=== PATIENT | male | born 1940 | race Two or more races ===

== ENCOUNTER 2018-03-03 10:40 | Inpatient (IN) | payer MEDICARE, BC ==
[2018-03-03] MEDS ORDERED: NACL 0.9% 3 ML SYG IV (12:00)
[2018-03-03] MEDS ORDERED: VANCOMYCIN IV PER PHARMACY XX (12:00)
[2018-03-03] MEDS ORDERED: ONDANSETRON 4 MG INJ IV (12:00)
[2018-03-03] MEDS ORDERED: DIPHENHYDRAMINE 50 MG CAP PO (12:00)
[2018-03-03 12:31] LABS: ADD MAN DIFF? NO
[2018-03-03 12:32] LABS: WHITE BLOOD COUNT 6.3 10^3/ul (4.8-10.8)
[2018-03-03 12:32] LABS: BASOPHILS % 0.2 % (0.0-2.0); EOSINOPHILS # 0.1 10^3/ul (0.0-0.5); EOSINOPHILS % 1.6 % (0.0-7.0); HEMATOCRIT 41.9 % (42.0-52.0); HEMOGLOBIN 13.9 g/dl (14.0-18.0); LYMPHOCYTES % 15.6 % (15.0-51.0); MEAN CORPUSCULAR HGB CONC 33.2 g/dl (32.0-37.0); MEAN CORPUSCULAR VOLUME 96.5 fl (82.0-101.0); MEAN PLATELET VOLUME 9.1 fl (7.4-10.4); MONOCYTE # 0.5 10^3/ul (0.3-0.9); MONOCYTES % 7.2 % (0.0-11.0); NEUTROPHIL # 4.7 10^3/ul (1.6-7.5); NEUTROPHILS % 74.9 % (39.0-77.0); PLATELET COUNT 224 10^3/UL (140-415); RED BLOOD COUNT 4.34 10^6/ul (4.70-6.10); RED CELL DISTRIBUTION WIDTH 13.5 % (11.5-14.5)
[2018-03-03 13:25] LABS: ALANINE AMINOTRANSFERASE 12 IU/L (13-69); ALBUMIN 3.4 g/dl (3.3-4.9); ALBUMIN/GLOBULIN RATIO 1.03; ALKALINE PHOSPHATASE 107 IU/L (42-121); ANION GAP 9 (5-13); ASPARTATE AMINO TRANSFERASE 21 IU/L (15-46); BILIRUBIN,INDIRECT 0.3 mg/dl (0-1.1); BILIRUBIN,TOTAL 0.3 mg/dl (0.2-1.3); BLOOD UREA NITROGEN 21 mg/dl (7-20); CARBON DIOXIDE 30 mmol/L (21-31); CHLORIDE 103 mmol/L (97-110); CREATININE 0.89 mg/dl (0.61-1.24); GLUCOSE 104 mg/dl (70-220); MAGNESIUM 2.2 mg/dl (1.7-2.5); POTASSIUM 4.3 mmol/L (3.5-5.1); SODIUM 142 mmol/L (135-144); TOTAL PROTEIN 6.7 g/dl (6.1-8.1)
[2018-03-03] MEDS: VANCOMYCIN 1.5 GM in SOD CHLORIDE 0.9% 250 ML IVPB ×2 (13:30→18:17)
[2018-03-03] MEDS ORDERED: PENDING SANTYL ORDER FOR WOUND CARE XX (16:30)
[2018-03-03] MEDS: MEROPENEM 1 GM/50ML(PMX) 50 ML IVPB ×2 (17:45→21:59)
[2018-03-03] MEDS: DEXTROSE 5%-0.45% NACL 1,000 ML IV (18:17)
[2018-03-03 18:22] LABS: ADD UMIC NO; UR ASCORBIC ACID NEGATIVE (NEGATIVE); UR BILIRUBIN (Dip) NEGATIVE (NEGATIVE); UR BLOOD (Dip) NEGATIVE (NEGATIVE); UR CLARITY CLEAR (CLEAR); UR COLOR YELLOW (YELLOW); UR GLUCOSE (Dip) NEGATIVE (NEGATIVE); UR KETONES (Dip) NEGATIVE (NEGATIVE); UR LEUKOCYTE ESTERASE (Dip) NEGATIVE Leu/ul (NEGATIVE); UR NITRITE (Dip) NEGATIVE (NEGATIVE); UR SPECIFIC GRAVITY (Dip) 1.016 (1.003-1.030); UR TOTAL PROTEIN (Dip) NEGATIVE (NEGATIVE); UR UROBILINOGEN (Dip) 1+ mg/dL (NEGATIVE)
[2018-03-03 18:34] LABS: CREATININE,URINE RANDOM 84.67 mg/dl (20-370)
[2018-03-03 20:46] LABS: C-REACTIVE PROTEIN 2.2 mg/dl (0.0-0.9)
[2018-03-03] MEDS: CARBIDOPA/LEVODOPA 25-100 (CR) TAB PO (21:00)
[2018-03-03] MEDS: ATORVASTATIN 10 MG TAB PO (21:00)
[2018-03-03] MEDS ORDERED: CARBIDOPA/LEVODOPA 50-200 (CR) TAB PO (21:00)
[2018-03-03 21:20] LABS: ERYTHROCYTE SEDIMENTATION RATE 37 mm/Hr (0-20)
[2018-03-04] MEDS ORDERED: VANCOMYCIN 750 MG (PMX) 250 ML IVPB (03:00)
[2018-03-04 05:29] LABS: HEMOGLOBIN A1C 5.9 % (0-5.9)
[2018-03-04] MEDS: VANCOMYCIN 750 MG (PMX) 250 ML IVPB ×2 (05:37→17:38)
[2018-03-04] MEDS: CARBIDOPA/LEVODOPA 25-100 (CR) TAB PO ×2 (08:56→21:25)
[2018-03-04] MEDS: ALLOPURINOL 100 MG TAB PO (08:56)
[2018-03-04] MEDS ORDERED: ENOXAPARIN 40 MG/0.4 ML SYG SC (09:00)
[2018-03-04] MEDS: MEROPENEM 1 GM/50ML(PMX) 50 ML IVPB ×2 (13:59→21:48)
[2018-03-04] MEDS: DEXTROSE 5%-0.45% NACL 1,000 ML IV (14:53)
[2018-03-04] MEDS: CARBIDOPA/LEVODOPA (25/100) TAB NGT (17:37)
[2018-03-04] MEDS ORDERED: CARBIDOPA/LEVODOPA 50-200 (CR) TAB PO (21:00)
[2018-03-04] MEDS: ATORVASTATIN 10 MG TAB PO (21:23)
[2018-03-04] MEDS: traMADol 50 MG TAB PO (23:11)
[2018-03-05] MEDS: ACETAMINOPHEN 325 MG TAB PO ×2 (01:52→08:52)
[2018-03-05] MEDS: MEROPENEM 1 GM/50ML(PMX) 50 ML IVPB ×3 (06:17→21:28)
[2018-03-05] MEDS: traMADol 50 MG TAB PO ×2 (06:22→15:26)
[2018-03-05] MEDS: DEXTROSE 5%-0.45% NACL 1,000 ML IV ×3 (06:23→21:29)
[2018-03-05 06:41] LABS: ADD MAN DIFF? NO
[2018-03-05 06:44] LABS: WHITE BLOOD COUNT 7.4 10^3/ul (4.8-10.8)
[2018-03-05 06:44] LABS: BASOPHILS % 0.3 % (0.0-2.0); EOSINOPHILS # 0.3 10^3/ul (0.0-0.5); EOSINOPHILS % 3.9 % (0.0-7.0); HEMATOCRIT 43.4 % (42.0-52.0); HEMOGLOBIN 14.4 g/dl (14.0-18.0); LYMPHOCYTES # 1.6 10^3/ul (0.8-2.9); LYMPHOCYTES % 21.2 % (15.0-51.0); MEAN CORPUSCULAR HEMOGLOBIN 31.6 pg (29.0-33.0); MEAN CORPUSCULAR HGB CONC 33.2 g/dl (32.0-37.0); MEAN CORPUSCULAR VOLUME 95.4 fl (82.0-101.0); MEAN PLATELET VOLUME 9.5 fl (7.4-10.4); MONOCYTE # 0.6 10^3/ul (0.3-0.9); MONOCYTES % 8.7 % (0.0-11.0); NEUTROPHIL # 4.8 10^3/ul (1.6-7.5); NEUTROPHILS % 65.5 % (39.0-77.0); PLATELET COUNT 209 10^3/UL (140-415); RED BLOOD COUNT 4.55 10^6/ul (4.70-6.10); RED CELL DISTRIBUTION WIDTH 13.3 % (11.5-14.5)
[2018-03-05 07:06] LABS: VANCOMYCIN,TROUGH 11.7 ug/ml (10.0-20.0)
[2018-03-05 08:14] LABS: HEPATITIS B SURFACE ANTIGEN NEGATIVE (NEGATIVE)
[2018-03-05 08:32] LABS: HEPATITIS B CORE ANTIBODY REACTIVE (NEGATIVE); HEPATITIS C VIRAL ANTIBODY NEGATIVE (NEGATIVE)
[2018-03-05 08:32] LABS: HEPATITIS B SURFACE ANTIBODY POSITIVE (NEGATIVE)
[2018-03-05] MEDS: ALLOPURINOL 100 MG TAB PO (08:52)
[2018-03-05] MEDS: CARBIDOPA/LEVODOPA (25/100) TAB NGT ×3 (09:12→17:28)
[2018-03-05] MEDS: SODIUM HYPOCHLORITE (1/40) 1 APPLIC BTL IRR (09:12)
[2018-03-05] MEDS: ATORVASTATIN 10 MG TAB PO (21:32)
[2018-03-05] MEDS: QUETIAPINE 25 MG TAB PO (21:32)
[2018-03-05] MEDS: CARBIDOPA/LEVODOPA 25-100 (CR) TAB PO (21:45)
[2018-03-06] MEDS: traMADol 50 MG TAB PO (03:23)
[2018-03-06] MEDS: MEROPENEM 1 GM/50ML(PMX) 50 ML IVPB ×3 (05:25→20:24)
[2018-03-06] MEDS: ALLOPURINOL 100 MG TAB PO (08:21)
[2018-03-06] MEDS: QUETIAPINE 25 MG TAB PO ×2 (08:22→20:24)
[2018-03-06] MEDS: ESCITALOPRAM 10 MG TAB NGT (08:22)
[2018-03-06] MEDS: CARBIDOPA/LEVODOPA (25/100) TAB NGT ×3 (08:29→17:30)
[2018-03-06] MEDS: SODIUM HYPOCHLORITE (1/40) 1 APPLIC BTL IRR (08:30)
[2018-03-06] MEDS: ENOXAPARIN 40 MG/0.4 ML SYG SC (08:32)
[2018-03-06] MEDS: LIDOCAINE 1% (MPF) 5 ML VIAL SC ×2 (10:20→10:30)
[2018-03-06] MEDS: ACETAMINOPHEN 325 MG TAB PO (13:30)
[2018-03-06] MEDS: CEFTRIAXONE XX (14:48)
[2018-03-06] MEDS: ATORVASTATIN 10 MG TAB PO (20:24)
[2018-03-06] MEDS: CARBIDOPA/LEVODOPA 25-100 (CR) TAB PO (22:07)
[2018-03-06] MEDS ORDERED: IPRATROPIUM (NEB) 0.5 MG/2.5 ML AMP HHN (23:30)
[2018-03-07] MEDS: MEROPENEM 1 GM/50ML(PMX) 50 ML IVPB (05:04)
[2018-03-07] MEDS: ACETAMINOPHEN 325 MG TAB PO (06:36)
[2018-03-07 08:25] LABS: ADD MAN DIFF? NO
[2018-03-07 08:29] LABS: BASOPHILS % 0.3 % (0.0-2.0); EOSINOPHILS # 0.4 10^3/ul (0.0-0.5); EOSINOPHILS % 6.3 % (0.0-7.0); HEMATOCRIT 44.3 % (42.0-52.0); HEMOGLOBIN 14.5 g/dl (14.0-18.0); LYMPHOCYTES # 1.4 10^3/ul (0.8-2.9); LYMPHOCYTES % 20.5 % (15.0-51.0); MEAN CORPUSCULAR HEMOGLOBIN 31.7 pg (29.0-33.0); MEAN CORPUSCULAR HGB CONC 32.7 g/dl (32.0-37.0); MEAN CORPUSCULAR VOLUME 96.7 fl (82.0-101.0); MEAN PLATELET VOLUME 9.5 fl (7.4-10.4); MONOCYTE # 0.5 10^3/ul (0.3-0.9); MONOCYTES % 7.3 % (0.0-11.0); NEUTROPHIL # 4.3 10^3/ul (1.6-7.5); NEUTROPHILS % 65.2 % (39.0-77.0); PLATELET COUNT 205 10^3/UL (140-415); RED BLOOD COUNT 4.58 10^6/ul (4.70-6.10); RED CELL DISTRIBUTION WIDTH 13.8 % (11.5-14.5)
[2018-03-07 08:29] LABS: WHITE BLOOD COUNT 6.7 10^3/ul (4.8-10.8)
[2018-03-07 09:09] LABS: ANION GAP 7 (5-13); BLOOD UREA NITROGEN 16 mg/dl (7-20); C-REACTIVE PROTEIN 4.2 mg/dl (0.0-0.9); CALCIUM 9.1 mg/dl (8.4-10.2); CARBON DIOXIDE 28 mmol/L (21-31); CHLORIDE 103 mmol/L (97-110); GLUCOSE 122 mg/dl (70-220); POTASSIUM 4.2 mmol/L (3.5-5.1); SODIUM 138 mmol/L (135-144)
[2018-03-07] MEDS: ALLOPURINOL 100 MG TAB PO (09:19)
[2018-03-07] MEDS: ESCITALOPRAM 10 MG TAB NGT (09:20)
[2018-03-07] MEDS: QUETIAPINE 25 MG TAB PO ×2 (09:23→20:07)
[2018-03-07] MEDS: CARBIDOPA/LEVODOPA (25/100) TAB NGT ×3 (09:27→18:05)
[2018-03-07] MEDS: SODIUM HYPOCHLORITE (1/40) 1 APPLIC BTL IRR (09:37)
[2018-03-07] MEDS: ENOXAPARIN 40 MG/0.4 ML SYG SC (09:39)
[2018-03-07] MEDS: metroNIDAZOLE 500 MG TAB PO ×2 (12:43→20:07)
[2018-03-07] MEDS: CEFTRIAXONE 2 GM/50 ML (PMX) 50 ML IVPB (16:17)
[2018-03-07] MEDS: ATORVASTATIN 10 MG TAB PO (20:07)
[2018-03-07] MEDS: CARBIDOPA/LEVODOPA 25-100 (CR) TAB PO (20:07)
[2018-03-08] MEDS: metroNIDAZOLE 500 MG TAB PO ×3 (05:37→21:37)
[2018-03-08] MEDS: QUETIAPINE 25 MG TAB PO ×2 (08:52→20:40)
[2018-03-08] MEDS: ALLOPURINOL 100 MG TAB PO (08:52)
[2018-03-08] MEDS: CARBIDOPA/LEVODOPA (25/100) TAB NGT ×3 (08:52→17:55)
[2018-03-08] MEDS: ESCITALOPRAM 10 MG TAB NGT (08:52)
[2018-03-08] MEDS: ENOXAPARIN 40 MG/0.4 ML SYG SC (08:53)
[2018-03-08] MEDS: SODIUM HYPOCHLORITE (1/40) 1 APPLIC BTL IRR (08:54)
[2018-03-08] MEDS: CEFTRIAXONE 2 GM/50 ML (PMX) 50 ML IVPB (13:12)
[2018-03-08] MEDS: TAMSULOSIN (SR) 0.4 MG CAP PO (20:40)
[2018-03-08] MEDS: CARBIDOPA/LEVODOPA 25-100 (CR) TAB PO (20:40)
[2018-03-08] MEDS: ATORVASTATIN 10 MG TAB PO (20:40)
[2018-03-09] MEDS: metroNIDAZOLE 500 MG TAB PO (05:38)
[2018-03-09] MEDS: SODIUM HYPOCHLORITE (1/40) 1 APPLIC BTL IRR (08:12)
[2018-03-09] MEDS: QUETIAPINE 25 MG TAB PO (08:12)
[2018-03-09] MEDS: ALLOPURINOL 100 MG TAB PO (08:12)
[2018-03-09] MEDS: HYDROmorphONE 0.5 MG/0.5 ML SYG IV (08:12)
[2018-03-09] MEDS: ESCITALOPRAM 10 MG TAB NGT (08:12)
[2018-03-09] MEDS: ENOXAPARIN 40 MG/0.4 ML SYG SC (08:15)
[2018-03-09] MEDS: CARBIDOPA/LEVODOPA (25/100) TAB NGT ×2 (11:10→12:15)
[2018-03-09] MEDS: CEFTRIAXONE 2 GM/50 ML (PMX) 50 ML IVPB (12:15)
== END 2018-03-09 13:40 | DRG 504 ==
LOC: PP2 10:40 → 5EC 03-04 23:30
PROVIDERS: Internal Medicine
PROC: 0QBP0ZZ Excision of Left Metatarsal, Open Approach (ICD-10-PCS; principal; 2018-03-04)
PROC: 02H633Z Insertion of Infusion Device into Right Atrium, Percutaneous Approach (ICD-10-PCS; 2018-03-06)
DX: M86.8X7 Other osteomyelitis, ankle and foot (principal); L03.116 Cellulitis of left lower limb; F33.2 Major depressive disorder, recurrent severe without psychotic features; L97.529 Non-pressure chronic ulcer of other part of left foot with unspecified severity; G20 Parkinson's disease; N18.9 Chronic kidney disease, unspecified; F32.9 Major depressive disorder, single episode, unspecified; E78.5 Hyperlipidemia, unspecified; M10.9 Gout, unspecified; G62.9 Polyneuropathy, unspecified; I12.9 Hypertensive chronic kidney disease with stage 1 through stage 4 chronic kidney disease, or unspecified chronic kidney disease; I73.9 Peripheral vascular disease, unspecified; F02.80 Dementia in other diseases classified elsewhere, unspecified severity, without behavioral disturbance, psychotic disturbance, mood disturbance, and anxiety; R33.9 Retention of urine, unspecified
CPT/HCPCS: 36569; 71045; 73630-LT; 73718; 73721; 76937; 80048; 80053; 80202; 81003; 82570; 83036; 83735; 84443; 85025; 85651; 86140; 86704; 86706; 86803; 87070; 87340; 92610; 93005; 93922; 93970

== ENCOUNTER 2018-04-29 06:43 | Day surgery (SDC) | payer MEDICARE, BC ==
[2018-04-29] MEDS ORDERED: GLYCOPYRROLATE 0.4 MG INJ (07:00)
[2018-04-29] MEDS ORDERED: LIDOCAINE 2% (SDV) 5 ML INJ (07:00)
[2018-04-29] MEDS: VANCOMYCIN 1 GM (PMX) 250 ML IVPB (08:06)
[2018-04-29] MEDS: ACETAMINOPHEN 500 MG TAB PO (08:06)
[2018-04-29] MEDS ORDERED: FENTAnyl 50 MCG/ML VIAL (08:48)
[2018-04-29] MEDS ORDERED: morphine (1 MG/ML) 10ML SYRINGE IV (09:00)
[2018-04-29] MEDS ORDERED: LABETALOL HCL 20MG INJ IV (09:00)
[2018-04-29] MEDS ORDERED: EPHEDrine SULFATE 50 MG/5 ML SYG IV (09:00)
[2018-04-29] MEDS ORDERED: OXYCODONE/ACETAMINOPHEN (5/325) TAB PO (09:00)
[2018-04-29] MEDS ORDERED: ALBUTEROL 0.083% (NEB) 2.5 MG/3 ML AMP HHN (09:00)
[2018-04-29] MEDS ORDERED: FENTAnyl 50 MCG/ML VIAL IV (09:00)
[2018-04-29] MEDS ORDERED: LACTATED RINGER'S 1,000 ML IV (09:00)
[2018-04-29] MEDS ORDERED: ATROPINE 1 MG/10 ML SYRINGE IV (09:00)
[2018-04-29] MEDS ORDERED: hydrALAzine 20 MG INJ IV (09:00)
[2018-04-29] MEDS ORDERED: DIPHENHYDRAMINE 50 MG INJ IV (09:00)
[2018-04-29] MEDS ORDERED: EPHEDrine SULFATE 50 MG/5 ML SYG (09:19)
[2018-04-29] MEDS ORDERED: PROPOFOL 40 ML (09:19)
[2018-04-29] MEDS: BUPIVACAINE 0.5% (SDV) 30 ML INJ (09:25)
[2018-04-29] MEDS: VANCOMYCIN 1 GM INJ (09:34)
[2018-04-29] MEDS: LIDOCAINE 1% (MPF) 30 ML INJ (09:34)
[2018-04-29] MEDS: BACITRACIN 50000 UNITS INJ IRR (10:14)
[2018-04-29] MEDS: POLYMYXIN B 500000 UNIT INJ (10:14)
[2018-04-29] MEDS: HYDROmorphONE 1 MG/5 ML IV SYRINGE IV ×2 (10:17→10:31)
[2018-04-29] MEDS: ONDANSETRON 4 MG INJ IV (10:17)
== END 2018-04-29 12:26 | disposition home or self-care (01) ==
LOC: SDS 06:43
DX: L97.529 Non-pressure chronic ulcer of other part of left foot with unspecified severity (principal); M86.172 Other acute osteomyelitis, left ankle and foot; I12.9 Hypertensive chronic kidney disease with stage 1 through stage 4 chronic kidney disease, or unspecified chronic kidney disease; N18.9 Chronic kidney disease, unspecified; G20 Parkinson's disease; F02.80 Dementia in other diseases classified elsewhere, unspecified severity, without behavioral disturbance, psychotic disturbance, mood disturbance, and anxiety; E78.5 Hyperlipidemia, unspecified
CPT/HCPCS: 11044; 87070; 87075; 87102; 88304; 88311

== ENCOUNTER 2018-05-06 15:06 | Emergency (ER) | payer MEDICARE, BC ==
[2018-05-06 16:35] LABS: ADD MAN DIFF? NO
[2018-05-06 16:36] LABS: WHITE BLOOD COUNT 8.4 10^3/ul (4.8-10.8)
[2018-05-06 16:36] LABS: BASOPHILS % 0.2 % (0.0-2.0); HEMATOCRIT 49.1 % (42.0-52.0); HEMOGLOBIN 16.5 g/dl (14.0-18.0); LYMPHOCYTES # 1.4 10^3/ul (0.8-2.9); LYMPHOCYTES % 16.1 % (15.0-51.0); MEAN CORPUSCULAR HEMOGLOBIN 31.2 pg (29.0-33.0); MEAN CORPUSCULAR HGB CONC 33.6 g/dl (32.0-37.0); MEAN CORPUSCULAR VOLUME 92.8 fl (82.0-101.0); MEAN PLATELET VOLUME 9.2 fl (7.4-10.4); MONOCYTE # 0.7 10^3/ul (0.3-0.9); MONOCYTES % 7.7 % (0.0-11.0); NEUTROPHIL # 6.4 10^3/ul (1.6-7.5); NEUTROPHILS % 75.8 % (39.0-77.0); PLATELET COUNT 171 10^3/UL (140-415); RED BLOOD COUNT 5.29 10^6/ul (4.70-6.10); RED CELL DISTRIBUTION WIDTH 13.4 % (11.5-14.5)
[2018-05-06 16:52] LABS: ANION GAP 12 (5-13); BLOOD UREA NITROGEN 23 mg/dl (7-20); CALCIUM 9.5 mg/dl (8.4-10.2); CARBON DIOXIDE 23 mmol/L (21-31); CHLORIDE 105 mmol/L (97-110); CREATININE 0.85 mg/dl (0.61-1.24); GLUCOSE 120 mg/dl (70-220); POTASSIUM 4.5 mmol/L (3.5-5.1); SODIUM 140 mmol/L (135-144)
[2018-05-06 16:57] LABS: INR 0.96; PROTIME 12.9 Sec (11.9-14.9)
[2018-05-06 17:07] LABS: TROPONIN-I < 0.012 ng/ml (0.000-0.120)
[2018-05-06] MEDS: ACETAMINOPHEN 325 MG TAB PO (17:13)
[2018-05-06] MEDS: SOD CHLORIDE 0.9% 1,000 ML IV (17:13)
== END 2018-05-06 21:27 | disposition home or self-care (01) ==
LOC: E/R 15:06
DX: S00.03XA Contusion of scalp, initial encounter (principal); G30.9 Alzheimer's disease, unspecified; W18.39XA Other fall on same level, initial encounter; Y92.9 Unspecified place or not applicable; Z96.649 Presence of unspecified artificial hip joint
CPT/HCPCS: 36415; 70450; 72125; 80048; 82962; 84484; 85025; 85610; 85730; 93005; 99285-25

== ENCOUNTER 2018-07-08 11:54 | Inpatient (IN) | payer MEDICARE, BC ==
[2018-07-08 13:06] LABS: ADD MAN DIFF? NO
[2018-07-08 13:08] LABS: BASOPHILS % 0.3 % (0.0-2.0); EOSINOPHILS % 0.2 % (0.0-7.0); HEMATOCRIT 50.8 % (42.0-52.0); HEMOGLOBIN 16.4 g/dl (14.0-18.0); LYMPHOCYTES # 2.2 10^3/ul (0.8-2.9); LYMPHOCYTES % 23.9 % (15.0-51.0); MEAN CORPUSCULAR HEMOGLOBIN 29.9 pg (29.0-33.0); MEAN CORPUSCULAR HGB CONC 32.3 g/dl (32.0-37.0); MEAN CORPUSCULAR VOLUME 92.7 fl (82.0-101.0); MEAN PLATELET VOLUME 10.2 fl (7.4-10.4); MONOCYTE # 0.8 10^3/ul (0.3-0.9); NEUTROPHIL # 6.1 10^3/ul (1.6-7.5); NEUTROPHILS % 65.8 % (39.0-77.0); PLATELET COUNT 222 10^3/UL (140-415); RED BLOOD COUNT 5.48 10^6/ul (4.70-6.10); RED CELL DISTRIBUTION WIDTH 15.7 % (11.5-14.5)
[2018-07-08 13:08] LABS: WHITE BLOOD COUNT 9.3 10^3/ul (4.8-10.8)
[2018-07-08 13:14] LABS: ALBUMIN 3.7 g/dl (3.3-4.9); ALBUMIN/GLOBULIN RATIO 0.94; ALKALINE PHOSPHATASE 170 IU/L (42-121); ANION GAP 13 (5-13); ASPARTATE AMINO TRANSFERASE 38 IU/L (15-46); BILIRUBIN,INDIRECT 0.3 mg/dl (0-1.1); BILIRUBIN,TOTAL 0.3 mg/dl (0.2-1.3); BLOOD UREA NITROGEN 98 mg/dl (7-20); CALCIUM 10.3 mg/dl (8.4-10.2); CARBON DIOXIDE 20 mmol/L (21-31); CHLORIDE 110 mmol/L (97-110); CREATININE 2.76 mg/dl (0.61-1.24); GLUCOSE 181 mg/dl (70-220); SODIUM 143 mmol/L (135-144); TOTAL PROTEIN 7.6 g/dl (6.1-8.1)
[2018-07-08 13:25] LABS: POTASSIUM 5.7 mmol/L (3.5-5.1)
[2018-07-08 13:26] LABS: TROPONIN-I < 0.012 ng/ml (0.000-0.120)
[2018-07-08 13:27] LABS: INR 1.06; PARTIAL THROMBOPLASTIN TIME 31.5 Sec (23.0-35.0); PROTIME 13.9 Sec (11.9-14.9); PT RATIO 1.1
[2018-07-08 13:41] LABS: ALANINE AMINOTRANSFERASE 6 IU/L (13-69)
[2018-07-08 14:01] LABS: LACTIC ACID 3.9 mmol/L (0.5-2.0)
[2018-07-08] MEDS: MEROPENEM 500MG/50 ML (PMX) 50 ML IVPB ×2 (14:19→22:46)
[2018-07-08 14:27] LABS: ADD UMIC YES; UR ASCORBIC ACID NEGATIVE (NEGATIVE); UR BACTERIA FEW /HPF (NONE SEEN); UR BILIRUBIN (Dip) NEGATIVE (NEGATIVE); UR BLOOD (Dip) 1+ mg/dL (NEGATIVE); UR CLARITY TURBID (CLEAR); UR COLOR YELLOW (YELLOW); UR GLUCOSE (Dip) NEGATIVE (NEGATIVE); UR KETONES (Dip) NEGATIVE (NEGATIVE); UR LEUKOCYTE ESTERASE (Dip) 2+ Leu/ul (NEGATIVE); UR MUCUS MANY /HPF (NONE SEEN); UR NITRITE (Dip) NEGATIVE (NEGATIVE); UR RBC 59 /HPF (0-5); UR SPECIFIC GRAVITY (Dip) 1.015 (1.003-1.030); UR SQUAMOUS EPITHELIAL CELL FEW /HPF (FEW); UR TOTAL PROTEIN (Dip) 3+ mg/dl (NEGATIVE); UR UROBILINOGEN (Dip) 1+ mg/dL (NEGATIVE); UR WBC > 182 /HPF (0-5)
[2018-07-08] MEDS: SOD CHLORIDE 0.9% 2,110 ML IV (14:31)
[2018-07-08] MEDS: VANCOMYCIN 1 GM (PMX) 250 ML IVPB (15:19)
[2018-07-08] MEDS ORDERED: NACL 0.9% 3 ML SYG IV (19:00)
[2018-07-08] MEDS ORDERED: ONDANSETRON 4 MG INJ IV (19:00)
[2018-07-08] MEDS ORDERED: ACETAMINOPHEN 650 MG SUPP PR (19:00)
[2018-07-08] MEDS ORDERED: VANCOMYCIN IV PER PHARMACY XX (19:30)
[2018-07-08] MEDS: DEXTROSE 5%-0.45% NACL 1,000 ML IV (19:51)
[2018-07-08 20:28] LABS: ANION GAP 8 (5-13); BLOOD UREA NITROGEN 90 mg/dl (7-20); CARBON DIOXIDE 18 mmol/L (21-31); CHLORIDE 118 mmol/L (97-110); CREATININE 2.35 mg/dl (0.61-1.24); GLUCOSE 146 mg/dl (70-220); POTASSIUM 5.2 mmol/L (3.5-5.1); SODIUM 144 mmol/L (135-144)
[2018-07-08] MEDS ORDERED: DEXTROSE 50% 50 ML SYRINGE IV ×2 (23:30)
[2018-07-08] MEDS ORDERED: GLUCOSE GEL 15 GRAM TUBE BUCCAL (23:30)
[2018-07-08] MEDS ORDERED: GLUCAGON 1 MG INJ IM (23:30)
[2018-07-08] MEDS ORDERED: GLUCOSE GEL 15 GRAM TUBE PO ×2 (23:30)
[2018-07-09] MEDS: INSULIN ASPART [NOVOLOG] 3 ML PEN SC ×6 (01:02→21:00)
[2018-07-09] MEDS: DEXTROSE 5%-0.45% NACL 1,000 ML IV ×4 (01:07→21:46)
[2018-07-09] MEDS: ACCU-CHEK XX (01:51)
[2018-07-09 05:41] LABS: ADD MAN DIFF? NO
[2018-07-09 05:46] LABS: WHITE BLOOD COUNT 6.2 10^3/ul (4.8-10.8)
[2018-07-09 05:46] LABS: BASOPHILS % 0.3 % (0.0-2.0); EOSINOPHILS % 0.6 % (0.0-7.0); HEMATOCRIT 42.1 % (42.0-52.0); HEMOGLOBIN 13.6 g/dl (14.0-18.0); LYMPHOCYTES # 1.4 10^3/ul (0.8-2.9); LYMPHOCYTES % 21.9 % (15.0-51.0); MEAN CORPUSCULAR HEMOGLOBIN 29.8 pg (29.0-33.0); MEAN CORPUSCULAR HGB CONC 32.3 g/dl (32.0-37.0); MEAN CORPUSCULAR VOLUME 92.3 fl (82.0-101.0); MEAN PLATELET VOLUME 9.6 fl (7.4-10.4); MONOCYTE # 0.5 10^3/ul (0.3-0.9); MONOCYTES % 8.2 % (0.0-11.0); NEUTROPHIL # 4.2 10^3/ul (1.6-7.5); NEUTROPHILS % 68.2 % (39.0-77.0); PLATELET COUNT 190 10^3/UL (140-415); RED BLOOD COUNT 4.56 10^6/ul (4.70-6.10); RED CELL DISTRIBUTION WIDTH 15.6 % (11.5-14.5)
[2018-07-09 06:23] LABS: ALBUMIN 2.8 g/dl (3.3-4.9); ALBUMIN/GLOBULIN RATIO 0.87; ALKALINE PHOSPHATASE 121 IU/L (42-121); ANION GAP 8 (5-13); ASPARTATE AMINO TRANSFERASE 31 IU/L (15-46); BILIRUBIN,INDIRECT 0.3 mg/dl (0-1.1); BILIRUBIN,TOTAL 0.3 mg/dl (0.2-1.3); BLOOD UREA NITROGEN 86 mg/dl (7-20); CARBON DIOXIDE 19 mmol/L (21-31); CHLORIDE 118 mmol/L (97-110); CREATININE 1.84 mg/dl (0.61-1.24); GLUCOSE 201 mg/dl (70-220); MAGNESIUM 2.7 mg/dl (1.7-2.5); PHOSPHORUS 3.9 mg/dl (2.5-4.9); POTASSIUM 4.3 mmol/L (3.5-5.1); SODIUM 145 mmol/L (135-144)
[2018-07-09 06:31] LABS: ALANINE AMINOTRANSFERASE < 6 IU/L (13-69)
[2018-07-09 07:52] LABS: HEMOGLOBIN A1C 6.6 % (0-5.9)
[2018-07-09] MEDS: MEROPENEM 500MG/50 ML (PMX) 50 ML IVPB ×2 (09:17→21:47)
[2018-07-09] MEDS: VANCOMYCIN HCL 1.25 GM in SOD CHLORIDE 0.9% 250 ML IVPB (17:44)
[2018-07-10] MEDS: INSULIN ASPART [NOVOLOG] 3 ML PEN SC ×6 (01:00→20:45)
[2018-07-10] MEDS: ACCU-CHEK XX (01:13)
[2018-07-10] MEDS ORDERED: COLLAGENASE 5 GM (UD JAR) TOP (04:37)
[2018-07-10] MEDS: COLLAGENASE 5 GM (UD JAR) TOP ×2 (04:52→08:32)
[2018-07-10] MEDS ORDERED: VANCOMYCIN HCL 1.25 GM in SOD CHLORIDE 0.9% 250 ML IVPB (05:00)
[2018-07-10] MEDS: DEXTROSE 5%-0.45% NACL 1,000 ML IV ×3 (06:00→13:46)
[2018-07-10] MEDS: MEROPENEM 500MG/50 ML (PMX) 50 ML IVPB (08:34)
[2018-07-10 10:33] LABS: ADD MAN DIFF? NO
[2018-07-10 10:36] LABS: WHITE BLOOD COUNT 6.5 10^3/ul (4.8-10.8)
[2018-07-10 10:36] LABS: BASOPHILS % 0.3 % (0.0-2.0); EOSINOPHILS # 0.3 10^3/ul (0.0-0.5); EOSINOPHILS % 4.3 % (0.0-7.0); HEMATOCRIT 42.2 % (42.0-52.0); HEMOGLOBIN 13.5 g/dl (14.0-18.0); LYMPHOCYTES # 1.5 10^3/ul (0.8-2.9); LYMPHOCYTES % 22.4 % (15.0-51.0); MEAN CORPUSCULAR HEMOGLOBIN 29.8 pg (29.0-33.0); MEAN CORPUSCULAR VOLUME 93.2 fl (82.0-101.0); MEAN PLATELET VOLUME 9.5 fl (7.4-10.4); MONOCYTE # 0.4 10^3/ul (0.3-0.9); MONOCYTES % 6.3 % (0.0-11.0); NEUTROPHIL # 4.3 10^3/ul (1.6-7.5); NEUTROPHILS % 65.8 % (39.0-77.0); PLATELET COUNT 163 10^3/UL (140-415); RED BLOOD COUNT 4.53 10^6/ul (4.70-6.10); RED CELL DISTRIBUTION WIDTH 15.9 % (11.5-14.5)
[2018-07-10 10:57] LABS: ALANINE AMINOTRANSFERASE 15 IU/L (13-69); ALBUMIN 2.7 g/dl (3.3-4.9); ALBUMIN/GLOBULIN RATIO 0.79; ALKALINE PHOSPHATASE 131 IU/L (42-121); ANION GAP 7 (5-13); ASPARTATE AMINO TRANSFERASE 27 IU/L (15-46); BILIRUBIN,INDIRECT 0.3 mg/dl (0-1.1); BILIRUBIN,TOTAL 0.3 mg/dl (0.2-1.3); BLOOD UREA NITROGEN 51 mg/dl (7-20); CALCIUM 8.7 mg/dl (8.4-10.2); CARBON DIOXIDE 21 mmol/L (21-31); CHLORIDE 120 mmol/L (97-110); GLUCOSE 176 mg/dl (70-220); MAGNESIUM 2.5 mg/dl (1.7-2.5); PHOSPHORUS 2.5 mg/dl (2.5-4.9); POTASSIUM 3.7 mmol/L (3.5-5.1); SODIUM 148 mmol/L (135-144); TOTAL PROTEIN 6.1 g/dl (6.1-8.1)
[2018-07-10] MEDS: DEXTROSE 5% 1,000 ML IV (19:05)
[2018-07-10] MEDS: CEFTRIAXONE 1 GM/50 ML (PMX) 50 ML IVPB (20:17)
[2018-07-11] MEDS: INSULIN ASPART [NOVOLOG] 3 ML PEN SC ×6 (01:00→20:26)
[2018-07-11] MEDS: ACCU-CHEK XX (02:00)
[2018-07-11] MEDS: DEXTROSE 5% 1,000 ML IV ×2 (08:38→23:35)
[2018-07-11] MEDS: COLLAGENASE 5 GM (UD JAR) TOP (09:20)
[2018-07-11] MEDS: CEFTRIAXONE 1 GM/50 ML (PMX) 50 ML IVPB (20:16)
[2018-07-12] MEDS: ACCU-CHEK XX (02:00)
[2018-07-12] MEDS: DEXTROSE 5% 1,000 ML IV (11:30)
[2018-07-12] MEDS: COLLAGENASE 5 GM (UD JAR) TOP (15:12)
== END 2018-07-12 18:13 | disposition hospice, home (50) | DRG 871 ==
LOC: PP2 20:35 → E/R 11:54 → PP2 14:24
DX: A41.9 Sepsis, unspecified organism (principal); L89.153 Pressure ulcer of sacral region, stage 3; N39.0 Urinary tract infection, site not specified; N17.9 Acute kidney failure, unspecified; E44.0 Moderate protein-calorie malnutrition; E86.0 Dehydration; E78.5 Hyperlipidemia, unspecified; F32.9 Major depressive disorder, single episode, unspecified; F41.9 Anxiety disorder, unspecified; G20 Parkinson's disease; F02.80 Dementia in other diseases classified elsewhere, unspecified severity, without behavioral disturbance, psychotic disturbance, mood disturbance, and anxiety; I10 Essential (primary) hypertension; R41.82 Altered mental status, unspecified; R62.7 Adult failure to thrive; Z68.22 Body mass index [BMI] 22.0-22.9, adult; Z66 Do not resuscitate; Z96.641 Presence of right artificial hip joint; Z87.39 Personal history of other diseases of the musculoskeletal system and connective tissue; Z87.2 Personal history of diseases of the skin and subcutaneous tissue; Z90.5 Acquired absence of kidney; Z87.442 Personal history of urinary calculi; Z79.82 Long term (current) use of aspirin
CPT/HCPCS: 36415; 70450; 71045; 80048; 80053; 81001; 82962; 83036; 83605; 83735; 84100; 84484; 85025; 85610; 85730; 87040-91; 87081; 87086; 92526; 92610; 93005; 96374; 99285-25